=== PATIENT | female | born 1995 | race African-American/Black ===

== ENCOUNTER 2022-02-21 11:43 | Observation (INO) ==
[2022-02-21] MEDS ORDERED: KETAMINE HCL ONE (13:00)
[2022-02-21] MEDS ORDERED: PRECEDEX INJ VIAL IVP ONE (13:00)
[2022-02-21] MEDS ORDERED: ULTANE GAS IN ONE (13:00)
[2022-02-21] MEDS ORDERED: MORPHINE SULFATE INJ 4 MG IVP ONE (13:27)
[2022-02-21] MEDS ORDERED: NS 1,000 ML IV 1,000 ML IV SCH (13:27)
[2022-02-21] MEDS ORDERED: PHENERGAN INJ 25 MG IM PRN (13:27)
[2022-02-21] MEDS ORDERED: NS 1,000 ML IV 1,000 ML ONE (13:31)
[2022-02-21 14:10] VITALS: BMI 35.0
[2022-02-21 14:18] LABS: BASOPHILS % (AUTO) 0.5 % (0.2-1.0); EOSINOPHILS # (AUTO) 0.1 x10^3/uL (0.0-0.2); EOSINOPHILS % (AUTO) 1.1 % (0.9-2.9); HEMOGLOBIN 13.4 g/dL (12.0-16.0); LYMPHOCYTES # (AUTO) 1.2 X10^3/uL (1.3-2.9); LYMPHOCYTES % (AUTO) 23.5 % (21.0-51.0); MEAN CORPUSCULAR HEMOGLOBIN 28.2 pg (27.0-34.0); MEAN CORPUSCULAR HGB CONC 34.3 g/dL (33.0-35.0); MEAN CORPUSCULAR VOLUME 82.3 fL (80.0-100.0); MEAN PLATELET VOLUME 8.9 fL (7.4-11.0); MONOCYTES # (AUTO) 0.4 x10^3/uL (0.3-0.8); MONOCYTES % (AUTO) 8.3 % (0.0-13.0); NEUTROPHILS # (AUTO) 3.5 x10^3/uL (2.2-4.8); NEUTROPHILS % (AUTO) 66.6 % (42.0-75.0); RED BLOOD COUNT 4.74 X10^6/uL (3.5-5.4); RED CELL DISTRIBUTION WIDTH 12.9 % (11.6-16.5); WHITE BLOOD COUNT 5.3 X10^3/uL (3.6-10.0)
[2022-02-21 14:22] LABS: ALANINE AMINOTRANSFERASE 16 Units/L (12-78); ALBUMIN 4.1 g/dL (3.4-5.0); ALKALINE PHOSPHATASE 92 Units/L (46-116); AMYLASE 56 Units/L (25-115); ASPARTATE AMINO TRANSFERASE 13 Units/L (15-37); BLOOD UREA NITROGEN 10 mg/dL (7-18); CALCIUM 8.4 mg/dL (8.5-10.1); CARBON DIOXIDE 29.9 mmol/L (21-32); CHLORIDE 101 mmol/L (98-107); CREATININE 0.72 mg/dL (0.55-1.02); LIPASE 58 Units/L (73-393); SODIUM 136 mmol/L (136-145); TOTAL PROTEIN 7.9 g/dL (6.4-8.2); eGFR NON BLACK RACES > 60 (>60)
[2022-02-21 14:28] LABS: LACTIC ACID 0.6 mmol/L (0.4-2.0)
[2022-02-21] MEDS: PROTONIX INJ 40 MG VIAL IVP SCH ×2 (14:30→21:13)
--- NOTE | 2022-02-21 17:25 | US ---
Ultrasound abdomenIndication: Nausea, vomiting and abdominal painCOMPARISONNo recent similar prior currently available. Report from study dated July 24, 2020 CTTECHNIQUEDynamic grayscale, color spectral Doppler imaging through the abdomenFINDINGSThe pancreas is normal. The gallbladder wall thickness is 3 mm. Stones are seen in the gallbladder. Common bile duct is 3 mm. The right kidney is 11 cm in length. Resistive index is 0.52. The liver is 15.3 cm in length with normal hepatic artery, portal vein and hepatic vein flow noted. The IVC is patent.IMPRESSION1. Cholelithiasis without specific evidence of acute cholecystitis. No Villagomez sign reported.2. No other acute abnormalityElectronically signed by: DEBBIE ORDOÑEZ (Feb 21, 2022 17:23:34)
[2022-02-21] MEDS: MORPHINE SULFATE INJ 2 MG INJ IVP PRN (17:30)
--- NOTE | 2022-02-21 18:19 | RAD ---
Frontal chest single viewIndication: Abdominal painFINDINGSThere is no pneumothorax or effusion. No dense consolidation seen. Heart size is within normal limits for technique.IMPRESSIONNo acute chest process or change from the prior.Electronically signed by: DEBBIE ORDOÑEZ (Feb 21, 2022 18:17:37)
[2022-02-21] MEDS ORDERED: NS 250 ML IV 0 ML IV ONE (20:42)
[2022-02-21] MEDS: ZOFRAN INJ 4 MG VIAL IVP PRN (21:16)
[2022-02-22] MEDS: MORPHINE SULFATE INJ 2 MG INJ IVP PRN (05:50)
[2022-02-22] MEDS: ZOFRAN INJ 4 MG VIAL IVP PRN ×3 (05:51→19:35)
[2022-02-22 05:54] LABS: EOSINOPHILS # (AUTO) 0.1 x10^3/uL (0.0-0.2); EOSINOPHILS % (AUTO) 2.2 % (0.9-2.9); HEMOGLOBIN 12.5 g/dL (12.0-16.0); LYMPHOCYTES # (AUTO) 2.6 X10^3/uL (1.3-2.9)
[2022-02-22 05:55] LABS: BASOPHILS # (AUTO) 0.1 X10^3/uL (0.0-0.1); BASOPHILS % (AUTO) 0.8 % (0.2-1.0); HEMATOCRIT 36.9 % (36.0-47.0); LYMPHOCYTES % (AUTO) 40.1 % (21.0-51.0); MEAN CORPUSCULAR HEMOGLOBIN 27.9 pg (27.0-34.0); MEAN PLATELET VOLUME 10.7 fL (7.4-11.0); MONOCYTES % (AUTO) 14.5 % (0.0-13.0); NEUTROPHILS # (AUTO) 2.8 x10^3/uL (2.2-4.8); NEUTROPHILS % (AUTO) 42.4 % (42.0-75.0); RED CELL DISTRIBUTION WIDTH 12.8 % (11.6-16.5); WHITE BLOOD COUNT 6.6 X10^3/uL (3.6-10.0)
[2022-02-22 06:03] LABS: ALANINE AMINOTRANSFERASE 18 Units/L (12-78); ALBUMIN 3.2 g/dL (3.4-5.0); ALKALINE PHOSPHATASE 76 Units/L (46-116); ASPARTATE AMINO TRANSFERASE 14 Units/L (15-37); BLOOD UREA NITROGEN 11 mg/dL (7-18); CALCIUM 7.7 mg/dL (8.5-10.1); CARBON DIOXIDE 27.5 mmol/L (21-32); CHLORIDE 103 mmol/L (98-107); COR CA(FOR HYPOALB) 8.3 mg/dL (8.5-10.1); CREATININE 0.75 mg/dL (0.55-1.02); SODIUM 137 mmol/L (136-145); TOTAL PROTEIN 6.7 g/dL (6.4-8.2); eGFR NON BLACK RACES > 60 (>60)
[2022-02-22 06:10] LABS: PLATELET MORPHOLOGY COMMENT ABNORMAL (NORMAL)
[2022-02-22] MEDS ORDERED: KLOR-CON PO PRN (06:10)
[2022-02-22] MEDS ORDERED: K-RIDER 10 MEQ/NS 100 ML 10 MEQ/100 ML BAG IV PRN (06:10)
[2022-02-22] MEDS ORDERED: POTASSIUM CHL 40 MEQ/NS 0.45% 500 ML IV PRN (06:10)
[2022-02-22] MEDS ORDERED: MICRO K EXTEN CAP 10 MEQ PO PRN (06:10)
[2022-02-22] MEDS ORDERED: POTASSIUM CHL 60 MEQ/NS 0.45% 500 ML IV PRN (06:10)
[2022-02-22] MEDS ORDERED: POTASSIUM CHLORIDE LIQ 20 MEQ UDC PO PRN (06:10)
[2022-02-22] MEDS ORDERED: K-DUR TAB 20 MEQ PO PRN (06:10)
[2022-02-22] MEDS: PROTONIX INJ 40 MG VIAL IVP SCH ×2 (09:00→20:02)
[2022-02-22 10:42] LABS: SERUM PREGNANCY TEST, QUAL NEGATIVE <10 mIU/mL
[2022-02-22] MEDS: MAGNESIUM SULFATE 1 GRAM/100 mL PREMIX 1 G/100 ML BAG IV PRN ×2 (10:43→15:39)
[2022-02-22] MEDS ORDERED: FENTANYL VIAL INJ 100 mcg ONE (10:45)
[2022-02-22] MEDS ORDERED: VERSED ONE (10:45)
[2022-02-22] MEDS ORDERED: PEPCID 20 MG VIAL ONE (10:46)
[2022-02-22] MEDS ORDERED: OFIRMEV IV 1000 MG VIAL 1,000 MG/100 ML VIAL IV ONE (10:46)
[2022-02-22] MEDS ORDERED: TORADOL 30 MG VIAL ONE (10:46)
[2022-02-22] MEDS ORDERED: BRIDION ONE (10:46)
[2022-02-22] MEDS ORDERED: ZEMURON 100 MG VIAL ONE (10:46)
[2022-02-22] MEDS ORDERED: ZOFRAN INJ 4 MG VIAL ONE (10:46)
[2022-02-22] MEDS ORDERED: DIPRIVAN VIAL 20 ML ONE (10:46)
[2022-02-22] MEDS ORDERED: XYLOCAINE 2 % (PLAIN) ONE (10:48)
[2022-02-22] MEDS ORDERED: ROBINUL ONE (11:51)
[2022-02-22] MEDS ORDERED: ANCEF VIAL 1 GRAM ONE (11:54)
[2022-02-22] MEDS ORDERED: LR 1,000 ML IV 1,000 ML IV ONE (11:54)
[2022-02-22] MEDS ORDERED: NS 100 ML IV 100 ML ONE (11:59)
--- NOTE | 2022-02-22 12:07 | DR.H&P ---
H&P - History & Physical for Day of: H&P Date: 02/21/22 - Chief Complaint Chief Complaint: RIGHT UPPER ABDOMINAL PAIN, NVD - History of Present Illness History of Present Illness: PT IS 27 BF, DIRECT ADMIT WITH CO RIGHT UPPER ABODMINAL PAIN WITH FOOD INTOLERANCE AND N/V/D. PT REPORTS FREQUENCY HAS INCREASED AND ALONG WITH SERVERITY. PT HAS PMH OF TYPE 2DM, LAST A1C<6. PT ADMITTED FOR TREATMENT AND EVALUATION OF ACUTE ABDOMINAL PAIN, ACUTE CHOLECYSITIS. - Past Medical History Past Medical History: Anxiety, Diabetes - Past Surgical History Surgical History: , Tonsillectomy - Family History Family Medical History: Diabetes Mellitus, Sudden Cardiac , Hypertension - Social History Does patient currently use any type of tobacco product: No Have you used tobacco products in the last 12 months: No Type of Tobacco Use: None Does any household member use tobacco: No Alcohol Use: None Drug Use: None - Medications Home Medications: No Known Drug Allergies [NKDA] Allergy (Verified 02/21/22 13:44) CONTINUE taking the following medications NK 02/21/22 [History] - Review of Systems Constitutional: Fever Eyes: No Symptoms Reported ENT: No Symptoms Reported Respiratory: No Symptoms Reported Cardiovascular: No Symptoms Reported Gastrointestinal: Nausea, Vomiting, Abdominal Pain, Diarrhea Genitourinary: No Symptoms Reported Musculoskeletal: No Symptoms Reported Skin: No Symptoms Reported Neurological: No Symptoms Reported - Physical Exam Vital Signs: Temperature 98.3 F Pulse Rate [Bilateral Radial] 53 Respiratory Rate 20 Blood Pressure [Left Arm] 101/57 O2 Sat by Pulse Oximetry 96 Oriented: Normal Eyes: Normal Ear: Normal Nose: Normal Throat: Normal Respiratory: Clear Throughout Cardiovascular: Normal. negative: Edema : Normal Auscultation: Bowel Sounds: Normal Palpation: Normal Tenderness: RUQ, Epigastric, Moderate Skin: Decreased Turgur Musculoskeletal: Normal Psychiatric: Anxiety Affect: Anxious Speech Pattern: Clear, Appropriate - Assessment/Plan (1) Right upper quadrant abdominal pain Status: Acute Plan: ADMIT, PAIN AND NAUSEA CONTROL. NPO, GB US ON ADMISSION. CXR ON ADMISSION. VERIFY HOME MEDICATION, GENTLE IV HYDRATION. SURGICAL CONSULT (2) Nausea vomiting and diarrhea Status: Acute (3) Food intolerance Status: Acute - Allergies Allergies/Adverse Reactions: Allergies Allergy/AdvReac Type Severity Reaction Status Date / Time No Known Drug Allergies Allergy Verified 02/21/22 13:44 [NKDA]
--- NOTE | 2022-02-22 12:15 | PCM.PROG ---
Progress Note - Progress Note for Day of Date of Exam: 02/22/22 - Subjective Subjective: PT IS 27 BF ADMITTED WITH ACUTE RIGHT UPPER ABDOMINAL PAIN WITH N/V/D AND FOOD INTOLERANCE. PT HAD GB US REVEALING CHOLELITHIASIS. PT HAS BEEN NPO SINCE MIDNIGHT WITH SURIGICAL CONSULT WITH DR WASHINGTON FOR POSSIBLE [facility] SR[facility]HAR TODAY. PT IS ON GENTLE IV HYDRATION WITH PAIN AND NAUSE CONTROL. BS AND BP ARE STABLE. - Past Medical Family Social History Past Med/Fam/Surg Hx: No changes since H&P Allergies: Allergies No Known Drug Allergies [NKDA] Allergy (Verified 02/21/22 13:44) - Review of Systems ROS: No change since H&P - Vital Signs and I&O's Vital Signs: Temperature 98.3 F Pulse Rate [Bilateral Radial] 53 Respiratory Rate 20 Blood Pressure [Left Arm] 101/57 O2 Sat by Pulse Oximetry 96 Intake and Output: Intake & Output 02/20/22 02/21/22 02/22/22 02/23/22 11:59 11:59 11:59 11:59 Intake Total 1969 Balance 1969 - Physical Exam Oriented: Normal Eyes: Normal Ear: Normal Nose: Normal Throat: Normal Cardiovascular: Normal. negative: Edema : Normal Auscultation: Bowel Sounds: Normal Tenderness: RUQ, Epigastric, Moderate Skin: Decreased Turgur Musculoskeletal: Normal Psychiatric: Anxiety Affect: Anxious Speech Pattern: Clear, Appropriate - Laboratory and Diagnostics Result Diagrams: 02/22/22 05:18 02/22/22 05:18 Labs: Laboratory WBC 6.6 X10^3/uL (3.6-10.0) 02/22/22 05:18 RBC 4.50 X10^6/uL (3.5-5.4) 02/22/22 05:18 Hgb 12.5 g/dL (12.0-16.0) 02/22/22 05:18 Hct 36.9 % (36.0-47.0) 02/22/22 05:18 MCV 82.0 fL (80.0-100.0) 02/22/22 05:18 MCH 27.9 pg (27.0-34.0) 02/22/22 05:18 MCHC 34.0 g/dL (33.0-35.0) 02/22/22 05:18 RDW 12.8 % (11.6-16.5) 02/22/22 05:18 Plt Count 234 X10^3/uL (150.0-450.0) 02/22/22 05:18 Plt Count Comment Adequate (ADEQUATE) 02/22/22 05:18 MPV 10.7 fL (7.4-11.0) 02/22/22 05:18 Neut % (Auto) 42.4 % (42.0-75.0) 02/22/22 05:18 Lymph % (Auto) 40.1 % (21.0-51.0) 02/22/22 05:18 [place] % (Auto) 14.5 % (0.0-13.0) H 02/22/22 05:18 Eos % (Auto) 2.2 % (0.9-2.9) 02/22/22 05:18 Baso % (Auto) 0.8 % (0.2-1.0) 02/22/22 05:18 Neut # (Auto) 2.8 x10^3/uL (2.2-4.8) 02/22/22 05:18 Lymph # (Auto) 2.6 X10^3/uL (1.3-2.9) 02/22/22 05:18 [place] # (Auto) 1.0 x10^3/uL (0.3-0.8) H 02/22/22 05:18 Eos # (Auto) 0.1 x10^3/uL (0.0-0.2) 02/22/22 05:18 Baso # (Auto) 0.1 X10^3/uL (0.0-0.1) 02/22/22 05:18 Absolute Nucleated RBC 0.3 /100WBC 02/22/22 05:18 Plt Clumps, EDTA Rare 02/22/22 05:18 Plt Morphology Comment Abnormal (NORMAL) A 02/22/22 05:18 RBC Morphology Normal (NORMAL) 02/22/22 05:18 Sodium 137 mmol/L (136-145) 02/22/22 05:18 Corrected Sodium TNP 02/22/22 05:18 Potassium 3.5 mmol/L (3.5-5.1) 02/22/22 05:18 Chloride 103 mmol/L (98-107) 02/22/22 05:18 Carbon Dioxide 27.5 mmol/L (21-32) 02/22/22 05:18 BUN 11 mg/dL (7-18) 02/22/22 05:18 Creatinine 0.75 mg/dL (0.55-1.02) 02/22/22 05:18 Est GFR (MDRD) Af Amer > 60 (>60) 02/22/22 05:18 Est GFR (MDRD) Non-Af > 60 (>60) 02/22/22 05:18 Glucose 98 mg/dL (65-99) 02/22/22 05:18 Lactic Acid 0.6 mmol/L (0.4-2.0) 02/21/22 13:58 Calcium 7.7 mg/dL (8.5-10.1) L 02/22/22 05:18 Corrected Calcium 8.3 mg/dL (8.5-10.1) L 02/22/22 05:18 Magnesium 1.8 mg/dL (2.0-2.9) L 02/22/22 05:25 Total Bilirubin 0.40 mg/dL (0.2-1.0) 02/22/22 05:18 AST 14 Units/L (15-37) L 02/22/22 05:18 ALT 18 Units/L (12-78) 02/22/22 05:18 Alkaline Phosphatase 76 Units/L (46-116) 02/22/22 05:18 Total Protein 6.7 g/dL (6.4-8.2) 02/22/22 05:18 Albumin 3.2 g/dL (3.4-5.0) L 02/22/22 05:18 Globulin 3.5 g/dL (2.5-4.5) 02/22/22 05:18 Albumin/Globulin Ratio 0.9 Ratio (1.1-2.1) L 02/22/22 05:18 Amylase 56 Units/L (25-115) 02/21/22 13:58 Lipase 58 Units/L (73-393) L 02/21/22 13:58 HCG, Qual Negative <10 mIU/mL 02/22/22 05:27 - Plan (1) Cholecystitis, acute with cholelithiasis Status: Acute Plan: NPO, GB US OBTAINED ON ADMISSION. CXR ON ADMISSION. VERIFY HOME MEDICATION, GENTLE IV HYDRATION. SURGICAL CONSULT (2) Right upper quadrant abdominal pain Status: Acute (3) Nausea vomiting and diarrhea Status: Acute (4) Food intolerance Status: Acute
[2022-02-22] MEDS ORDERED: NS 1,000 ML IV 1,000 ML ONE (12:17)
[2022-02-22] MEDS ORDERED: BACTROBAN TOPICAL OINT ONE (12:26)
[2022-02-22] MEDS ORDERED: LACRI-LUBE S.O.P. ONE (12:26)
[2022-02-22] MEDS ORDERED: DECADRON INJ ONE (12:34)
[2022-02-22] MEDS ORDERED: BENADRYL INJ 50 MG VIAL IVP PRN (13:33)
[2022-02-22] MEDS ORDERED: BARHEMSYS INJ IVP PRN (13:33)
[2022-02-22] MEDS ORDERED: DILAUDID INJ IVP PRN (13:33)
[2022-02-22] MEDS: DILAUDID INJ IVP PRN ×2 (14:54→19:34)
[2022-02-22] MEDS: D5 1/2 NS 1,000 ML 1,000 ML IV SCH ×2 (15:40→22:37)
[2022-02-23] MEDS: DILAUDID INJ IVP PRN (00:08)
[2022-02-23] MEDS: ZOFRAN INJ 4 MG VIAL IVP PRN (00:08)
[2022-02-23] MEDS: D5 1/2 NS 1,000 ML 1,000 ML IV SCH (05:36)
[2022-02-23 06:01] LABS: BASOPHILS # (AUTO) 0.1 X10^3/uL (0.0-0.1); BASOPHILS % (AUTO) 0.4 % (0.2-1.0); HEMATOCRIT 36.3 % (36.0-47.0); HEMOGLOBIN 12.3 g/dL (12.0-16.0); LYMPHOCYTES # (AUTO) 1.2 X10^3/uL (1.3-2.9); MEAN CORPUSCULAR HEMOGLOBIN 27.7 pg (27.0-34.0); MEAN CORPUSCULAR HGB CONC 33.8 g/dL (33.0-35.0); MEAN CORPUSCULAR VOLUME 81.9 fL (80.0-100.0); MEAN PLATELET VOLUME 9.2 fL (7.4-11.0); MONOCYTES # (AUTO) 0.7 x10^3/uL (0.3-0.8); MONOCYTES % (AUTO) 5.2 % (0.0-13.0); NEUTROPHILS # (AUTO) 11.5 x10^3/uL (2.2-4.8); NEUTROPHILS % (AUTO) 85.4 % (42.0-75.0); RED BLOOD COUNT 4.44 X10^6/uL (3.5-5.4); RED CELL DISTRIBUTION WIDTH 13.1 % (11.6-16.5); WHITE BLOOD COUNT 13.5 X10^3/uL (3.6-10.0)
[2022-02-23 06:12] LABS: ALANINE AMINOTRANSFERASE 34 Units/L (12-78); ALBUMIN 3.3 g/dL (3.4-5.0); ALKALINE PHOSPHATASE 79 Units/L (46-116); ASPARTATE AMINO TRANSFERASE 28 Units/L (15-37); BLOOD UREA NITROGEN 5 mg/dL (7-18); CALCIUM 8.3 mg/dL (8.5-10.1); CARBON DIOXIDE 26.3 mmol/L (21-32); CHLORIDE 103 mmol/L (98-107); COR CA(FOR HYPOALB) 8.9 mg/dL (8.5-10.1); COR NA(FOR HYPERGLY) 138 mmol/L (136-145); MAGNESIUM 2.2 mg/dL (2.0-2.9); SODIUM 137 mmol/L (136-145); eGFR NON BLACK RACES > 60 (>60)
[2022-02-23] MEDS: PROTONIX INJ 40 MG VIAL IVP SCH (08:45)
[2022-02-23] MEDS ORDERED: NORCO 5/325 MG TAB PO ONE (08:49)
--- NOTE | 2022-02-23 09:15 | DR.PROGNOT ---
Hospital Progress Notes - Progress Note for Day of: Progress Note Date: 02/23/22 - Chief Complaint Chief Complaint: doing very well s/p lap ирина .. WBC 13.5. normal LFT ,BUN/Creat and Lytes . - Past Medical Family Social History Past Med/Fam/Surg Hx: No changes since H&P Allergies: Allergies No Known Drug Allergies [NKDA] Allergy (Verified 02/21/22 13:44) - Review Of Systems ROS: No change since H&P - Vital Signs Vital Signs: Temperature 97.8 F Pulse Rate [Bilateral Radial] 66 Pulse Rate 78 Respiratory Rate 20 Blood Pressure [Left Arm] 97/53 Blood Pressure 118/62 O2 Sat by Pulse Oximetry 96 - Physical Exam Oriented: Normal Eyes: Normal Ear: Normal Nose: Normal Throat: Normal Cardiovascular: Normal. negative: Edema : Normal GI:Auscultation: Normal GI:Palpation: Normal GI: Tenderness: RUQ, Epigastric, Moderate Skin: Decreased Turgur Musculoskeletal: Normal Psychiatric: Anxiety Mood Description: Calm Affect: Anxious Speech Pattern: Clear, Appropriate - Laboratory and Diagnostics Result Diagrams: 02/23/22 05:35 02/23/22 05:35 Labs: Laboratory WBC 13.5 X10^3/uL (3.6-10.0) H 02/23/22 05:35 RBC 4.44 X10^6/uL (3.5-5.4) 02/23/22 05:35 Hgb 12.3 g/dL (12.0-16.0) 02/23/22 05:35 Hct 36.3 % (36.0-47.0) 02/23/22 05:35 MCV 81.9 fL (80.0-100.0) 02/23/22 05:35 MCH 27.7 pg (27.0-34.0) 02/23/22 05:35 MCHC 33.8 g/dL (33.0-35.0) 02/23/22 05:35 RDW 13.1 % (11.6-16.5) 02/23/22 05:35 Plt Count 326 X10^3/uL (150.0-450.0) 02/23/22 05:35 Plt Count Comment Adequate (ADEQUATE) 02/22/22 05:18 MPV 9.2 fL (7.4-11.0) 02/23/22 05:35 Neut % (Auto) 85.4 % (42.0-75.0) H 02/23/22 05:35 Lymph % (Auto) 9.0 % (21.0-51.0) L 02/23/22 05:35 [place] % (Auto) 5.2 % (0.0-13.0) 02/23/22 05:35 Eos % (Auto) 0.0 % (0.9-2.9) L 02/23/22 05:35 Baso % (Auto) 0.4 % (0.2-1.0) 02/23/22 05:35 Neut # (Auto) 11.5 x10^3/uL (2.2-4.8) H 02/23/22 05:35 Lymph # (Auto) 1.2 X10^3/uL (1.3-2.9) L 02/23/22 05:35 [place] # (Auto) 0.7 x10^3/uL (0.3-0.8) 02/23/22 05:35 Eos # (Auto) 0.0 x10^3/uL (0.0-0.2) 02/23/22 05:35 Baso # (Auto) 0.1 X10^3/uL (0.0-0.1) 02/23/22 05:35 Absolute Nucleated RBC 0.0 /100WBC 02/23/22 05:35 Plt Clumps, EDTA Rare 02/22/22 05:18 Plt Morphology Comment Abnormal (NORMAL) A 02/22/22 05:18 RBC Morphology Normal (NORMAL) 02/22/22 05:18 Sodium 137 mmol/L (136-145) 02/23/22 05:35 Corrected Sodium 138 mmol/L (136-145) 02/23/22 05:35 Potassium 4.1 mmol/L (3.5-5.1) 02/23/22 05:35 Chloride 103 mmol/L (98-107) 02/23/22 05:35 Carbon Dioxide 26.3 mmol/L (21-32) 02/23/22 05:35 BUN 5 mg/dL (7-18) L 02/23/22 05:35 Creatinine 0.70 mg/dL (0.55-1.02) 02/23/22 05:35 Est GFR (MDRD) Af Amer > 60 (>60) 02/23/22 05:35 Est GFR (MDRD) Non-Af > 60 (>60) 02/23/22 05:35 Glucose 132 mg/dL (65-99) H 02/23/22 05:35 Lactic Acid 0.6 mmol/L (0.4-2.0) 02/21/22 13:58 Calcium 8.3 mg/dL (8.5-10.1) L 02/23/22 05:35 Corrected Calcium 8.9 mg/dL (8.5-10.1) 02/23/22 05:35 Magnesium 2.2 mg/dL (2.0-2.9) 02/23/22 05:35 Total Bilirubin 0.30 mg/dL (0.2-1.0) 02/23/22 05:35 AST 28 Units/L (15-37) 02/23/22 05:35 ALT 34 Units/L (12-78) 02/23/22 05:35 Alkaline Phosphatase 79 Units/L (46-116) 02/23/22 05:35 Total Protein 7.0 g/dL (6.4-8.2) 02/23/22 05:35 Albumin 3.3 g/dL (3.4-5.0) L 02/23/22 05:35 Globulin 3.7 g/dL (2.5-4.5) 02/23/22 05:35 Albumin/Globulin Ratio 0.9 Ratio (1.1-2.1) L 02/23/22 05:35 Amylase 56 Units/L (25-115) 02/21/22 13:58 Lipase 58 Units/L (73-393) L 02/21/22 13:58 HCG, Qual Negative <10 mIU/mL 02/22/22 05:27 Tissue Pathology To follow 02/22/22 13:00 - Assessment and Plan 2: calculus sholecystitis s/o Lap ирина . could be D/C to be followed in 10 days . low fat diet , [place] 5 Q 4 h PRN - Problem Patient Problems: Patient Problems Right upper quadrant abdominal pain (Acute) R10.11 Nausea vomiting and diarrhea (Acute) R11.2, R19.7 Food intolerance (Acute) K90.49 Cholecystitis, acute with cholelithiasis (Acute) K80.00
[2022-02-23 12:46] VITALS: BP 111/60
== END 2022-02-23 12:20 | disposition home or self-care (01) ==
LOC: MED/SURG
PROVIDERS: ADMIT Internal Medicine; ATTEND Internal Medicine
DX: E11.65 Type 2 diabetes mellitus with hyperglycemia; F32.A Depression, unspecified; R12 Heartburn; K21.9 Gastro-esophageal reflux disease without esophagitis; F41.9 Anxiety disorder, unspecified; K80.00 Calculus of gallbladder with acute cholecystitis without obstruction